=== PATIENT | male | born 1970 | race Caucasian/White ===

== ENCOUNTER 2017-11-19 14:15 | Emergency (ER) | payer MEDICARE, OTHER ==
[2017-11-19] MEDS ORDERED: ASPIR LOW81 MG PO (14:33)
[2017-11-19] MEDS ORDERED: ZYRTEC10 M3 PO (14:33)
[2017-11-19] MEDS ORDERED: PROPRANOLOL HCL40 M2 PO (14:33)
[2017-11-19] MEDS ORDERED: NEXIUM20 MG (14:35)
[2017-11-19] MEDS ORDERED: GABAPENTIN TAB600 MG (14:38)
[2017-11-19 14:44] LABS: EOS # 0.3 (0.04-0.40); EOS % 3.1 % (0.0-4.0); HEMATOCRIT 49.2 % (42.0-52.0); HEMOGLOBIN 17.1 g/dL (13.5-18.0); LYMPH# 3.6 (1.50-4.00); MEAN CELL VOLUME 85 fl (78-100); MEAN CORPUSCULAR HEMOGLOBIN 30 pg (27-31); MEAN CORPUSCULAR HGB CONC 35 g/dL (33-37); MEAN PLATELET VOLUME 9.3 fl (7.4-10.4); MONO # 0.4 (0.20-0.80); NEU # 3.6 (1.40-6.50); PLATELET COUNT 226 K/mm3 (130-400); RED BLOOD COUNT 5.79 M/mm3 (4.20-5.60); RED CELL DISTRIBUTION WIDTH 13.6 % (11.5-14.5)
[2017-11-19 14:59] LABS: ALBUMIN 4.1 g/dL (3.5-5.0); CALCIUM 9.5 mg/dL (8.4-10.2); POTASSIUM 3.9 mmol/L (3.6-5.0); TOTAL BILIRUBIN 0.6 mg/dL (0.2-1.3); TOTAL PROTEIN 7.5 g/dL (6.3-8.2)
[2017-11-19 15:13] LABS: PROTHROMBIN TIME 10.8 SECONDS (9.0-12.0)
[2017-11-19 15:15] LABS: D-DIMER 0.21 mg/L FEU (0.15-0.50)
[2017-11-19 17:26] VITALS: BP 113/77
== END 2017-11-19 17:26 | disposition home or self-care (01) ==
LOC: ED 14:15
PROVIDERS: Physician Assistant
DX: I49.3 Ventricular premature depolarization (principal); F41.0 Panic disorder [episodic paroxysmal anxiety]; Z79.82 Long term (current) use of aspirin; Z79.899 Other long term (current) drug therapy; F43.10 Post-traumatic stress disorder, unspecified; F32.9 Major depressive disorder, single episode, unspecified

== ENCOUNTER 2018-02-23 15:15 | Emergency (ER) | payer MEDICARE, OTHER ==
[~2018-02-23] VITALS: Wt 100.7 kg
[~2018-02-23 15:15] MED LIST: ASPIR LOW81 MG PO; GABAPENTIN TAB600 MG; NEXIUM20 MG; PROPRANOLOL HCL40 M2 PO; ZYRTEC10 M3 PO
[2018-02-23] MEDS ORDERED: CBD OIL PO (15:23)
[2018-02-23 15:57] LABS: HEMATOCRIT 49.9 % (42.0-52.0); HEMOGLOBIN 17.6 g/dL (13.5-18.0); MEAN CELL VOLUME 85 fl (78-100); MEAN CORPUSCULAR HEMOGLOBIN 30 pg (27-31); MEAN CORPUSCULAR HGB CONC 35 g/dL (33-37); MEAN PLATELET VOLUME 9.9 fl (7.4-10.4); PLATELET COUNT 221 K/mm3 (130-400); RED BLOOD COUNT 5.87 M/mm3 (4.20-5.60); RED CELL DISTRIBUTION WIDTH 13.2 % (11.5-14.5); WHITE BLOOD COUNT 7.8 K/mm3 (4.8-10.8)
[2018-02-23 16:01] LABS: CALCIUM 9.7 mg/dL (8.4-10.2); POTASSIUM 3.7 mmol/L (3.6-5.0)
[2018-02-23 16:16] LABS: NEUTROPHILS 47 % (42-75)
[2018-02-23 16:17] LABS: LYMPHOCYTE 46 % (20-51); MONOCYTE 5 % (3-10)
[2018-02-23 16:43] LABS: D-DIMER 0.09 mg/L FEU (0.15-0.50)
[2018-02-23 17:19] VITALS: BP 133/93
== END 2018-02-23 17:20 | disposition home or self-care (01) ==
LOC: ED 15:15
PROVIDERS: Family Medicine
DX: F41.0 Panic disorder [episodic paroxysmal anxiety] (principal); I49.3 Ventricular premature depolarization; R73.9 Hyperglycemia, unspecified; Z79.82 Long term (current) use of aspirin

== ENCOUNTER → 2019-01-08 | Day surgery (SDC) | payer OTHER, MEDICARE ==
[~2019-01-08] MED LIST changes: +CBD OIL PO; +FLOMAX0.4 MG PO; +PERCOCET 325 MG1 TA2 PO; +PRILOSEC 20MG20 MG PO; +SEPTRA DS 8001 TAB PO; +ZOFRAN ODT4 MG PO
== END ==
LOC: MSO 08:16
DX: K22.2 Esophageal obstruction (principal); R19.7 Diarrhea, unspecified; Z90.49 Acquired absence of other specified parts of digestive tract; I10 Essential (primary) hypertension; G47.33 Obstructive sleep apnea (adult) (pediatric); K21.9 Gastro-esophageal reflux disease without esophagitis; K92.1 Melena
CPT/HCPCS: 00813; A4649; C1726; J2704; J3010; J7120

== ENCOUNTER 2019-01-11 02:11 | Emergency (ER) | payer OTHER, MEDICARE ==
[~2019-01-11 02:11] MED LIST changes: -FLOMAX0.4 MG PO; -PERCOCET 325 MG1 TA2 PO; -PRILOSEC 20MG20 MG PO; -SEPTRA DS 8001 TAB PO; -ZOFRAN ODT4 MG PO
[2019-01-11] MEDS ORDERED: PRILOSEC 20MG20 MG PO (02:17)
[2019-01-11] MEDS ORDERED: ZYRTEC10 M3 PO (02:17)
[2019-01-11 02:58] LABS: EOS # 0.2 (0.04-0.40); EOS % 1.8 % (0.0-4.0); HEMOGLOBIN 16.5 g/dL (13.5-18.0); MEAN CELL VOLUME 83 fl (78-100); MEAN CORPUSCULAR HEMOGLOBIN 29 pg (27-31); MEAN CORPUSCULAR HGB CONC 35 g/dL (33-37); MEAN PLATELET VOLUME 9.6 fl (7.4-10.4); MONO # 0.7 (0.20-0.80); NEU # 4.6 (1.40-6.50); PLATELET COUNT 208 K/mm3 (130-400); RED BLOOD COUNT 5.67 M/mm3 (4.20-5.60); RED CELL DISTRIBUTION WIDTH 13.6 % (11.5-14.5); WHITE BLOOD COUNT 8.5 K/mm3 (4.8-10.8)
[2019-01-11 03:03] LABS: ALBUMIN 4.2 g/dL (3.5-5.0); POTASSIUM 3.5 mmol/L (3.5-5.1)
[2019-01-11 03:04] LABS: CALCIUM 9.5 mg/dL (8.3-10.5)
[2019-01-11 03:08] LABS: TOTAL BILIRUBIN 0.9 mg/dL (0.2-1.2)
[2019-01-11 03:14] LABS: URINE APPEARANCE CLEAR; URINE COLOR YELLOW
[2019-01-11 03:15] LABS: URINE BILIRUBIN NEGATIVE (NEGATIVE); URINE BLOOD TRACE (NEGATIVE); URINE GLUCOSE NEGATIVE (NEGATIVE); URINE KETONE NEGATIVE (NEGATIVE); URINE LEUKOCYTE ESTERASE NEGATIVE (NEGATIVE); URINE NITRATE NEGATIVE (NEGATIVE); URINE PROTEIN(semi-quant) NEGATIVE (NEGATIVE); URINE UROBILINOGEN NORMAL (NORMAL); URINE WBC 0-1 /hpf (0-3)
[2019-01-11] MEDS ORDERED: PERCOCET 325 MG1 TA2 PO (14:48)
[2019-01-11] MEDS ORDERED: ZOFRAN ODT4 MG PO (14:48)
[2019-01-11] MEDS ORDERED: FLOMAX0.4 MG PO (14:48)
[2019-01-11] MEDS ORDERED: SEPTRA DS 8001 TAB PO (14:48)
[2019-01-11 15:00] VITALS: BP 129/80
== END 2019-01-11 15:00 | disposition home or self-care (01) ==
LOC: ED 02:11
PROVIDERS: Family Medicine
DX: N20.1 Calculus of ureter (principal); K21.9 Gastro-esophageal reflux disease without esophagitis; Z90.49 Acquired absence of other specified parts of digestive tract; Z98.890 Other specified postprocedural states
CPT/HCPCS: J1885; J2405; J3010; J7030

== ENCOUNTER 2019-01-12 02:06 | Emergency (ER) | payer OTHER, MEDICARE ==
[~2019-01-12] VITALS: Ht 175.3 cm; Wt 83.6 kg
[~2019-01-12 02:06] MED LIST changes: +FLOMAX0.4 MG PO; +PERCOCET 325 MG1 TA2 PO; +PRILOSEC 20MG20 MG PO; +SEPTRA DS 8001 TAB PO; +ZOFRAN ODT4 MG PO
[2019-01-12 08:20] VITALS: BP 131/86
== END 2019-01-12 08:19 | disposition home or self-care (01) ==
LOC: ED 02:06
DX: N20.1 Calculus of ureter (principal); F43.10 Post-traumatic stress disorder, unspecified; Z90.49 Acquired absence of other specified parts of digestive tract; Z98.890 Other specified postprocedural states
CPT/HCPCS: J1885; J2270; J2405; J7030

== ENCOUNTER → 2019-02-05 | Day surgery (SDC) | payer MEDICARE, OTHER ==
[2019-01-12 08:20] VITALS: BP 131/86
== END ==
LOC: MSO 07:15
DX: K22.2 Esophageal obstruction (principal); K21.9 Gastro-esophageal reflux disease without esophagitis; I10 Essential (primary) hypertension; G47.33 Obstructive sleep apnea (adult) (pediatric); Z79.82 Long term (current) use of aspirin; Z90.49 Acquired absence of other specified parts of digestive tract
CPT/HCPCS: 00731; C1726; J2704; J7120

== ENCOUNTER → 2019-03-05 | Day surgery (SDC) | payer MEDICARE, OTHER | LOC: MSO 07:23 | DX: K22.2 Esophageal obstruction (principal); K21.9 Gastro-esophageal reflux disease without esophagitis; Z79.899 Other long term (current) drug therapy; Z79.82 Long term (current) use of aspirin; G47.33 Obstructive sleep apnea (adult) (pediatric) | CPT/HCPCS: 00731; C1726; J2704; J7120 ==

== ENCOUNTER 2019-05-08 19:53 | Emergency (ER) | payer MEDICARE, OTHER ==
[~2019-05-08] VITALS: Ht 175.3 cm; Wt 83.6 kg
[2019-05-08 20:25] LABS: ALBUMIN 4.3 g/dL (3.5-5.0)
[2019-05-08 20:26] LABS: POTASSIUM 3.1 mmol/L (3.5-5.1)
[2019-05-08 20:28] LABS: TOTAL PROTEIN 7.6 g/dL (6.4-8.3)
[2019-05-08 20:30] LABS: TOTAL BILIRUBIN 0.8 mg/dL (0.2-1.2)
[2019-05-08 20:31] LABS: HEMATOCRIT 49.8 % (42.0-52.0); HEMOGLOBIN 17.2 g/dL (13.5-18.0); MEAN CELL VOLUME 84 fl (78-100); MEAN CORPUSCULAR HEMOGLOBIN 29 pg (27-31); MEAN CORPUSCULAR HGB CONC 35 g/dL (33-37); MEAN PLATELET VOLUME 9.9 fl (7.4-10.4); PLATELET COUNT 240 K/mm3 (130-400); RED BLOOD COUNT 5.96 M/mm3 (4.20-5.60); RED CELL DISTRIBUTION WIDTH 13.2 % (11.5-14.5)
[2019-05-08 20:56] LABS: MONOCYTE 5 % (3-10); NEUTROPHILS 38 % (42-75)
[2019-05-08 20:58] LABS: LYMPHOCYTE 43 % (20-51)
[2019-05-08 21:37] VITALS: BP 127/78
== END 2019-05-08 21:37 | disposition home or self-care (01) ==
LOC: ED 19:53
PROVIDERS: Family Medicine
DX: F41.0 Panic disorder [episodic paroxysmal anxiety] (principal); R00.0 Tachycardia, unspecified; K21.9 Gastro-esophageal reflux disease without esophagitis
CPT/HCPCS: J2060

== ENCOUNTER 2019-11-01 13:53 | Emergency (ER) | payer MEDICARE, OTHER ==
[~2019-11-01 13:53] MED LIST changes: +CLARITIN LIQUI-10 MG PO
[2019-11-01 15:10] LABS: POTASSIUM 3.8 mmol/L (3.5-5.1); SODIUM 140 mmol/L (136-145)
[2019-11-01 15:11] LABS: CALCIUM 9.6 mg/dL (8.3-10.5); GLUCOSE 98 mg/dL (75-110)
[2019-11-01 15:13] LABS: CARBON DIOXIDE 24 mmol/L (22-29)
[2019-11-01 15:26] LABS: TROPONIN-I < 0.03 ng/mL (<0.030)
[2019-11-01 17:05] VITALS: BP 130/91
== END 2019-11-01 17:25 | disposition home or self-care (01) ==
LOC: ED 13:53
PROVIDERS: Family Medicine
DX: I10 Essential (primary) hypertension (principal); F41.9 Anxiety disorder, unspecified
CPT/HCPCS: J2060

== ENCOUNTER 2020-12-14 22:08 | Emergency (ER) | payer MEDICARE, OTHER ==
[2020-12-14] MEDS ORDERED: VITAMIN C PUR1000 MG PO (22:35)
[2020-12-14] MEDS ORDERED: OMEPRAZOLE40 MG PO (22:35)
[2020-12-14] MEDS ORDERED: VITAMIN D325 MC4 PO (22:36)
[2020-12-14 22:58] LABS: BASO # 0.05 (0.02-0.10); EOS % 2.4 % (0.0-4.0); HEMATOCRIT 58.2 % (42.0-52.0); LYMPH# 3.62 (1.50-4.00); MEAN CELL VOLUME 85 fl (78-100); MEAN CORPUSCULAR HEMOGLOBIN 29 pg (27-31); MEAN CORPUSCULAR HGB CONC 34 g/dL (33-37); MEAN PLATELET VOLUME 9.3 fl (7.4-10.4); MONO # 0.78 (0.20-0.80); NEU # 3.51 (1.40-6.50); PLATELET COUNT 227 K/mm3 (130-400); RED BLOOD COUNT 6.83 M/mm3 (4.20-5.60); RED CELL DISTRIBUTION WIDTH 13.5 % (11.5-14.5); WHITE BLOOD COUNT 8.2 K/mm3 (4.8-10.8)
[2020-12-14 23:03] LABS: ALBUMIN 4.5 g/dL (3.5-5.0)
[2020-12-14 23:04] LABS: POTASSIUM 3.9 mmol/L (3.5-5.1)
[2020-12-14 23:05] LABS: CALCIUM 10.7 mg/dL (8.3-10.5)
[2020-12-14 23:06] LABS: TOTAL PROTEIN 8.5 g/dL (6.4-8.3)
[2020-12-15 02:04] VITALS: BP 130/98
== END 2020-12-15 02:04 | disposition home or self-care (01) ==
LOC: ED 22:08
PROVIDERS: Physician Assistant
DX: F41.9 Anxiety disorder, unspecified (principal); E86.0 Dehydration; R19.7 Diarrhea, unspecified; Z79.899 Other long term (current) drug therapy; Z20.822 Contact with and (suspected) exposure to COVID-19
CPT/HCPCS: J7030

== ENCOUNTER 2023-10-03 12:37 | Emergency (ER) | payer MEDICARE, OTHER ==
[~2023-10-03 12:37] MED LIST changes: +OMEPRAZOLE40 MG PO; +VITAMIN C PUR1000 MG PO; +VITAMIN D325 MC4 PO
[2023-10-03 13:13] LABS: BASO # 0.05 K/mm3 (0.02-0.10); EOS # 0.15 K/mm3 (0.04-0.40); EOS % 1.5 % (0.0-4.0); HEMATOCRIT 51.2 % (42.0-52.0); HEMOGLOBIN 18.1 g/dL (13.5-18.0); LYMPH# 4.91 K/mm3 (1.50-4.00); MEAN CELL VOLUME 84 fl (78-100); MEAN CORPUSCULAR HEMOGLOBIN 30 pg (27-31); MEAN CORPUSCULAR HGB CONC 35 g/dL (33-37); MEAN PLATELET VOLUME 9.1 fl (7.4-10.4); MONO # 0.66 K/mm3 (0.20-0.80); NEU # 4.27 K/mm3 (1.40-6.50); PLATELET COUNT 238 K/mm3 (130-400); RED BLOOD COUNT 6.07 M/mm3 (4.20-5.60); RED CELL DISTRIBUTION WIDTH 12.8 % (11.5-14.5); WHITE BLOOD COUNT 10.1 K/mm3 (4.8-10.8)
[2023-10-03 13:20] LABS: ALBUMIN 4.3 g/dL (3.5-5.0)
[2023-10-03 13:21] LABS: SODIUM 139 mmol/L (136-145)
[2023-10-03 13:22] LABS: CALCIUM 9.9 mg/dL (8.3-10.5)
[2023-10-03 13:23] LABS: GLUCOSE 99 mg/dL (75-110); TOTAL PROTEIN 7.4 g/dL (6.4-8.3)
[2023-10-03 13:24] LABS: CARBON DIOXIDE 18 mmol/L (22-29)
[2023-10-03 13:25] LABS: TOTAL BILIRUBIN 1.1 mg/dL (0.2-1.2)
[2023-10-03 13:28] LABS: AST-SGOT 29 U/L (5-34)
[2023-10-03 13:29] LABS: ALT/SGPT 37 U/L (0-55)
[2023-10-03] MEDS ORDERED: LORazepam 2 MG/ML VIAL IV SCH (13:30)
[2023-10-03 13:45] LABS: TROPONIN-I < 0.030 ng/mL (0.00-0.033)
[2023-10-03 14:03] LABS: D-DIMER 0.29 mg/L FEU (0.15-0.50)
== END 2023-10-03 19:05 | disposition home or self-care (01) ==
LOC: ED 12:37
PROVIDERS: Nurse Practitioner Family
DX: F41.9 Anxiety disorder, unspecified (principal); R06.02 Shortness of breath
CPT/HCPCS: J2060

== ENCOUNTER 2024-01-20 22:38 | Emergency (ER) | payer MEDICARE, OTHER ==
[2024-01-20] MEDS ORDERED: CHOLESTYRAMINE P4 GM PO (23:03)
[2024-01-20] MEDS ORDERED: HYDROXYZINE HCL25 M1 PO (23:04)
[2024-01-20] MEDS ORDERED: GAS-X EXTRA ST125 MG PO (23:05)
[2024-01-20] MEDS ORDERED: diazePAM 5 MG TAB PO ONE (23:15)
[2024-01-20 23:26] LABS: BASO # 0.03 K/mm3 (0.02-0.10); EOS # 0.14 K/mm3 (0.04-0.40); EOS % 2.2 % (0.0-4.0); HEMATOCRIT 47.7 % (42.0-52.0); HEMOGLOBIN 16.2 g/dL (13.5-18.0); LYMPH# 2.14 K/mm3 (1.50-4.00); MEAN CELL VOLUME 86 fl (78-100); MEAN CORPUSCULAR HEMOGLOBIN 29 pg (27-31); MEAN CORPUSCULAR HGB CONC 34 g/dL (33-37); MEAN PLATELET VOLUME 9.1 fl (7.4-10.4); PLATELET COUNT 180 K/mm3 (130-400); RED BLOOD COUNT 5.52 M/mm3 (4.20-5.60); RED CELL DISTRIBUTION WIDTH 12.9 % (11.5-14.5); WHITE BLOOD COUNT 6.4 K/mm3 (4.8-10.8)
[2024-01-20 23:34] LABS: ALBUMIN 3.9 g/dL (3.5-5.0)
[2024-01-20 23:36] LABS: CALCIUM 9.5 mg/dL (8.3-10.5)
[2024-01-20 23:37] LABS: TOTAL PROTEIN 6.7 g/dL (6.4-8.3)
[2024-01-20 23:39] LABS: TOTAL BILIRUBIN 0.8 mg/dL (0.2-1.2)
[2024-01-21 00:02] VITALS: BP 114/80
== END 2024-01-21 00:01 | disposition home or self-care (01) ==
LOC: ED 22:38
PROVIDERS: Physician Assistant
DX: R42 Dizziness and giddiness (principal); Z90.49 Acquired absence of other specified parts of digestive tract; Z79.899 Other long term (current) drug therapy; Z90.89 Acquired absence of other organs

== ENCOUNTER 2024-05-20 14:31 | Emergency (ER) | payer MEDICARE, OTHER ==
[~2024-05-20] VITALS: Ht 175.3 cm; Wt 88.2 kg
[~2024-05-20 14:31] MED LIST changes: +CHOLESTYRAMINE P4 GM PO; +GAS-X EXTRA ST125 MG PO; +HYDROXYZINE HCL25 M1 PO
[2024-05-20] MEDS ORDERED: Ibuprofen 800 MG TAB PO ONE (16:00)
[2024-05-20] MEDS ORDERED: TAMIFLU 75MG75 MG PO (17:12)
[2024-05-20] MEDS ORDERED: ZOFRAN ODT4 MG PO (17:12)
[2024-05-20 17:15] VITALS: BP 123/84
[2024-05-20] MEDS ORDERED: Oseltamivir 75 MG CAP PO ONE (17:15)
== END 2024-05-20 17:18 | disposition home or self-care (01) ==
LOC: ED 14:31
DX: J10.1 Influenza due to other identified influenza virus with other respiratory manifestations (principal)